=== PATIENT | male | born 1995 | race Caucasian/White ===

== ENCOUNTER 2016-08-13 18:40 | Emergency (ER) | payer BC ==
[~2016-08-13] VITALS: Ht 160 cm; Wt 57.2 kg
[2016-08-13 19:03] VITALS: BP_SYST 123
[2016-08-13] MEDS ORDERED: MORPHINE 4 MG/ML INJ. SYRINGE IVP ONE (20:00)
[2016-08-13 20:59] VITALS: BP_SYST 120
== END 2016-08-13 20:59 | disposition home or self-care (01) ==
LOC: EDBD 18:40 → SED 18:40
DX: S43.004A Unspecified dislocation of right shoulder joint, initial encounter (principal); W19.XXXA Unspecified fall, initial encounter; Y93.62 Activity, american flag or touch football; Y92.321 Football field as the place of occurrence of the external cause; Y99.8 Other external cause status
CPT/HCPCS: 23650; 73020; 73030; 96374; 99284; J2270; J7030